=== PATIENT | female | born 1990 | race Caucasian/White ===

== ENCOUNTER → 2016-09-12 | Outpatient (REF) | payer OTHER ==
[~2016-09-12] MED LIST: ACET50TA PO; ALBU17IN INH; COLA100C3 PO; IBUP80TA PO; MOM30SS PO; PRENTAB9 PO
== END ==
LOC: M LAB REF 16:46
PROVIDERS: ATTEND Advanced Practice Midwife
DX: Z12.4 Encounter for screening for malignant neoplasm of cervix (principal)